=== PATIENT | male | born 1955 | race Caucasian/White ===

== ENCOUNTER → 2021-11-20 | Day surgery (SDC) | payer MEDICARE, OTHER ==
[~2021-11-20] VITALS: Ht 175.3 cm; Wt 109.3 kg
[~2021-11-20] MED LIST: ASCORBIC ACID500 MG PO; COZAAR100 MG PO; ECHINACEA80 MG PO; NORVASC5 MG PO; PRILOSEC20 MG PO; VITAMIN B-121000 MC1 PO; VITAMIN D325 MC1 PO
[2021-11-20 08:40] LABS: HCT 42.5 % (42.0-52.0); HGB 14.6 g/dl (13.2-18.0); MCHC 34.4 g/dL (32.0-36.0); MCV 90.2 fL (78.0-100.0); MPV 10.6 fL (6.0-9.5); RBC 4.71 M/uL (4.70-6.00); RDW 13.8 % (11.5-14.0); WBC 7.7 K/uL (4.0-10.5)
[2021-11-20 09:33] LABS: ALBUMIN 4.4 g/dL (3.4-5.0); BILIRUBIN - TOTAL 0.8 mg/dL (0.2-1.0); CREATININE 1.4 mg/dL (0.67-1.17); GLOBULIN (CALCULATION) 4.4 g/dL; TOTAL PROTEIN 8.8 g/dL (6.4-8.2)
[2021-11-20 09:43] LABS: POTASSIUM 3.8 mmol/L (3.5-5.1)
== END | disposition home or self-care (01) ==
LOC: FAS 08:01
PROVIDERS: Surgery
DX: Z12.11 Encounter for screening for malignant neoplasm of colon (principal); D12.0 Benign neoplasm of cecum; Z83.71 Family history of colonic polyps; E78.5 Hyperlipidemia, unspecified; E11.22 Type 2 diabetes mellitus with diabetic chronic kidney disease; I12.9 Hypertensive chronic kidney disease with stage 1 through stage 4 chronic kidney disease, or unspecified chronic kidney disease; N18.9 Chronic kidney disease, unspecified
CPT/HCPCS: 36415; 80053; J2704; J7120